=== PATIENT | female | born 1980 | race Caucasian/White ===

== ENCOUNTER 2017-10-04 14:01 | Emergency (ER) | payer BC, OTHER ==
[~2017-10-04] VITALS: Ht 160 cm; Wt 63.5 kg
[2017-10-04] MEDS ORDERED: LORazepam 0.5mg tab ORAL ONE (14:30)
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
[2017-10-04] MEDS ORDERED: ATIVAN0.5 MG ORAL (14:32)
[2017-10-04 14:38] VITALS: BP 121/82
[2017-10-04 15:10] VITALS: BP 121/82
== END 2017-10-04 15:11 | disposition home or self-care (01) ==
LOC: EMR 14:30
DX: F41.9 Anxiety disorder, unspecified (principal); F41.0 Panic disorder [episodic paroxysmal anxiety]
CPT/HCPCS: 99282